=== PATIENT | female | born 1990 | race Caucasian/White ===

== ENCOUNTER 2018-04-18 18:04 | Inpatient (IN) | payer OTHER ==
--- NOTE | 2018-04-18 20:21 | HP ---
General Information - Reason for Visit 28yo G1 at 38+5 wks presents with SROM, large amt of clear fluid at about 1730 this evening. Started having ctx after that. Currently about every 4-5 min, mild to moderate in strength. Pt transferred to [facility] from a [facility] practice about a week ago, but we still do not have any records. Per pt, has been uncomplicated other than some recent borderline HTN and lower extremity edema. They started doing weekly NSTs a few weeks ago. She also reports she had a growth sono about 3 wks ago that showed the baby was around 6lb. BP normal in our office, but urine protein returned 360mg. - General Information Maternal Age: 28 Grav: 1 Para: 0 SAB: 0 IEA: 0 Estimated Due Date: 04/27/18 Determined By: per pt Gestational Age in Weeks/Days: 38+5 wks Maternal Blood Type and Rh: A Positive - Results this HBsAg Result: Negative HIV Result: Negative GBS Culture Result: Negative Past Medical History Past Medical History Comment: None Pertinent Past Surgical History: None - Antepartal Records Antepartal Records: Not Available Review of Systems Constitutional: Comfortable CV Complaint: No Respiratory: Shortness of Breath: No Gastrointestinal: No Nausea/Vomiting, Normal Bowel Movement Genitourinary: Leaking Fluid, No Dysuria, No Bleeding Musculoskeletal: Contractions - just started in the last few hours, mild to mod Neurological: No Headache, No Visual Changes Movement: Normal Exam Allergies/Adverse Reactions: Allergies No Known Allergies Allergy (Verified 04/18/18 20:22) 130-140s/80-90s Lab Values - Entire Visit: Laboratory Tests 04/18/18 18:31 Vag Amniotic Fld Detect Positive - Exam Breast: Breast Exam Deferred Extremities: Edema - 1+ Heart: Normal Rhythm/Heart Sounds HEENT: No Significant Findings Lungs: Clear Bilaterally Rectal: Rectal Exam Deferred - Abdominal Exam Abdomen Exam: Non-Tender, Fundal Height Consistent with Dates - limited by obesity - Ultrasound/Biophysical Profile Ultrasound Status: Not Done Targeted Exam Findings Estimated Weight: 7lb 4oz Cervical Exam: 2cm Effacement: 80% Station: -2 Presenting Part: Vertex Membrane Status: SROM Amniotic Fluid Evaluation: Gross Rupture Bleeding/Discharge: None EFM Findings - External Monitor Findings Baseline Heart Rate: 140 External Monitor Findings: Accelerations Present, No Pattern of Variable or Late Decelerations Contractions: Irregular, Mild, Moderate Assessment/Plan - Assessment 38+5 wks with gross SROM, reassuring status, appears to be getting into early labor. Recent HTN and elevated 24-hr urine protein, so will treat as mild pre- eclamptic at this point. - Obstetrical Risk Factors Obstetrical Risk Factors: PreEclampsia - Plan Plan: Admit - Anticipate Vaginal Delivery Plan Comment: Plan to place IV, get routine HTN labs. Will observe and start pitocin if ctx do not increase/persist. Consider Magnesium sulfate if severely elevated BP or abnormal labs. Expect . - Date/Time of Admission Date of Admission: 04/18/18 Time of Admission: 19:30
[2018-04-18 20:45] LABS: ABS Basophils 0 10^3/ul (0-0.2); ABS Eosinophils 0.1 10^3/ul (0-0.6); ABS Lymphocytes 2.7 10^3/ul (1.0-4.8); ABS Neutrophils 9.8 10^3/ul (1.5-7.7); ABS Nucleated RBC 0 10^3/ul; Eosinophil % 0.6 %; Hematocrit 37 % (35-47); Hemoglobin 12.1 g/dl (12.0-16.0); Mean Corpuscular HGB Conc 33 g/dl (31-36); Mean Corpuscular Hemoglobin 26 pg (27-31); Mean Corpuscular Volume 79 fL (80-97); Mean Platelet Volume 8.5 fL (7.4-10.4); Nucleated Red Blood Cells % 0.1; Platelet Count 286 10^3/ul (150-450); Red Blood Count 4.67 10^6/ul (4.00-5.40); Red Cell Distribution Width 16 % (10.5-15); White Blood Count 13.6 10^3/ul (3.5-10.8)
[2018-04-18 20:58] LABS: EGFR Non-African American 135.4 (>60); Uric Acid 3.5 mg/dL (2.3-6.6)
[2018-04-19] MEDS ORDERED: OBEPIDURAL* 250 ML EPIDURAL ONE (04:43)
[2018-04-19] MEDS ORDERED: Sodium Citrate/Citric Acid* 15 ML UDC PO PRN (05:05)
[2018-04-19] MEDS ORDERED: Famotidine TAB* 20 MG PO PRN (05:05)
[2018-04-19] MEDS ORDERED: Phenylephrine IV* 40 MCG/ML 10 ML SYRINGE IV PUSH PRN (05:05)
[2018-04-19] MEDS ORDERED: EPHEDrine (Pressors)* 50 MG/ML VIAL IV PUSH PRN (05:05)
[2018-04-19] MEDS ORDERED: OBEPIDURAL* 250 ML EPIDURAL SCH (06:00)
[2018-04-19] MEDS ORDERED: Glycerin ADULT SUPP PR PRN (11:33)
[2018-04-19] MEDS ORDERED: Dibucaine 1% 28.35 GM TUBE PR PRN (11:33)
[2018-04-19] MEDS ORDERED: Acetaminophen TAB* 325 MG PO PRN (11:33)
[2018-04-19] MEDS ORDERED: Witch Hazel PAD* JAR TOPICAL PRN (11:33)
[2018-04-19] MEDS ORDERED: Ibuprofen TAB* 600 MG PO PRN (11:33)
[2018-04-19] MEDS ORDERED: Oxytocin in LR* 20 UNITS/1,000 ML BAG IVPB SCH ×2 (12:00)
[2018-04-19] MEDS ORDERED: Simethicone TAB* 80 MG TAB.CHEW PO SCH (12:30)
--- NOTE | 2018-04-19 13:11 | PROCNOTE ---
[facility] OB: Delivery Note - Delivery A Date of : 04/19/18 Time of : 11:07 [place] Sex: Female Weight at : 6 lb 1 oz Score 1 Minute: 8 Score 5 Minutes: 9 Gestational Age in Weeks and Days at Delivery: 38 Weeks and 6 Days Delivery Method: Spontaneous Vaginal Labor: Spontaneous Amniotic Fluid: Clear Estimated Blood Loss: 200 Anesthesia/Analgesia: CEI for Labor Delivered By: Sandra Pardo - Perineyuni Perineal Injury: 1st Degree Perineal Repair: By Delivering Practioner - Events Delivery Events of Note: Pitocin During Labor - Additional Delivery Notes Additional Delivery Notes: Pt arrived with ROM last evening. She only progressed from 2 to 3cm after 5hrs and therefore was started on pitocin. She then received an epidural and pitocin was not restarted due to FHT concerns. At 9am she was found to be fully dilated and pushed x2hrs to deliver the infant in NINA position, nuchal cord reduced x1 followed quickly by the shoulders and the rest of the body. The baby was placed on mom's abdomen. After >1min the cord was clamped x2 and cut by dad. A small 1st degree lac was repaired with 3-0 vicryl rapide with 2 [id number] sutures. The placenta delivered with gentle cord traction and fundal massage and appeared intact. Fundus was firm with good hemostasis. Mom and baby stable.
[2018-04-19] MEDS: Docusate CAP* 100 MG PO SCH ×2 (15:52→21:10)
[2018-04-19] MEDS: Docusate LIQ* 100 MG/10 ML UDC PO SCH (21:23)
[2018-04-20 07:28] LABS: ABS Basophils 0.1 10^3/ul (0-0.2); ABS Eosinophils 0.2 10^3/ul (0-0.6); ABS Lymphocytes 4.1 10^3/ul (1.0-4.8); ABS Monocytes 1.1 10^3/ul (0-0.8); ABS Neutrophils 12.8 10^3/ul (1.5-7.7); ABS Nucleated RBC 0 10^3/ul; Hematocrit 32 % (35-47); Hemoglobin 10.4 g/dl (12.0-16.0); Lymphocyte % 22.5 %; Mean Corpuscular HGB Conc 33 g/dl (31-36); Mean Corpuscular Hemoglobin 26 pg (27-31); Mean Corpuscular Volume 80 fL (80-97); Mean Platelet Volume 7.9 fL (7.4-10.4); Nucleated Red Blood Cells % 0.1; Platelet Count 221 10^3/ul (150-450); Red Blood Count 3.99 10^6/ul (4.00-5.40); Red Cell Distribution Width 17 % (10.5-15); White Blood Count 18.3 10^3/ul (3.5-10.8)
[2018-04-20] MEDS ORDERED: Ferrous Gluconate TAB* 324 MG TAB PO SCH (09:00)
[2018-04-20] MEDS ORDERED: Measles, Mumps,Rubella VACC* 0.5 ML/VIAL SUBCUT ONE (10:29)
[2018-04-20] MEDS: Docusate LIQ* 100 MG/10 ML UDC PO SCH ×3 (10:46→21:49)
[2018-04-21 05:36] VITALS: BP 109/62
[2018-04-21] MEDS: Docusate LIQ* 100 MG/10 ML UDC PO SCH (08:35)
== END 2018-04-21 14:14 | disposition home or self-care (01) | DRG 560 ==
LOC: MCHOBOUT 18:04 → MCHOB 19:10
PROVIDERS: ADMIT Obstetrics & Gynecology; ATTEND Obstetrics & Gynecology
PROC: 4A1HXCZ Monitoring of Products of Conception, Cardiac Rate, External Approach (ICD-10-PCS; principal; 2018-04-18)
PROC: 0HQ9XZZ Repair Perineum Skin, External Approach (ICD-10-PCS; 2018-04-19)
PROC: 10E0XZZ Delivery of Products of Conception, External Approach (ICD-10-PCS; 2018-04-19)
DX: O14.04 Mild to moderate pre-eclampsia, complicating childbirth (principal); Z37.0 Single live birth; O69.81X0 Labor and delivery complicated by cord around neck, without compression, not applicable or unspecified; O70.0 First degree perineal laceration during delivery; O76 Abnormality in fetal heart rate and rhythm complicating labor and delivery; O99.214 Obesity complicating childbirth; Z3A.38 38 weeks gestation of pregnancy
CPT/HCPCS: 36415; 80053; 84112; 84550; 85025; 86850; 86900; 86901; A9270-GY

== ENCOUNTER 2021-05-17 18:35 | Inpatient (IN) ==
[2021-05-17] MEDS ORDERED: Dinoprostone 10 MG VAG.SUPP VAGINAL ONE (20:13)
[2021-05-17] MEDS ORDERED: Lactated Ringers 1000 ml BAG 1,000 ML IV ONE (20:13)
[2021-05-17] MEDS ORDERED: Buffered Lidocaine 1% SYRIN 1 ml INTRADERM ONE (20:13)
[2021-05-17] MEDS ORDERED: Lactated Ringers 1000 ml BAG 1,000 ML IV SCH (21:00)
[2021-05-17 21:57] LABS: Urine Benzodiazepine Screen None Detected (None Detect); Urine Cannabinoids Screen None Detected (None Detect); Urine Opiates Screen None Detected (None Detect)
[2021-05-18] MEDS ORDERED: Nalbuphine 10 MG/ML 1 ML VIAL IV PRN (00:14)
[2021-05-18] MEDS ORDERED: Promethazine INJ(RESTRICTED) 25 MG/ML 1 ml VIAL IV PRN (00:15)
[2021-05-18] MEDS ORDERED: Oxytocin in LR 20 UNITS/1,000 ML BAG IVPB SCH ×2 (10:00→15:00)
[2021-05-18 10:26] LABS: ABS Basophils 0.1 10^3/ul (0-0.2); ABS Eosinophils 0.1 10^3/ul (0-0.6); ABS Lymphocytes 2.9 10^3/ul (1.0-4.8); ABS Monocytes 0.6 10^3/ul (0-0.8); ABS Neutrophils 7.1 10^3/ul (1.5-7.7); Eosinophil % 0.5 %; Hematocrit 36 % (35-47); Hemoglobin 11.4 g/dL (12.0-16.0); Lymphocyte % 26.9 %; Mean Corpuscular HGB Conc 32 g/dL (31-36); Mean Corpuscular Hemoglobin 23 pg (27-31); Mean Corpuscular Volume 72 fL (80-97); Mean Platelet Volume 9.1 fL (7.4-10.4); Nucleated Red Blood Cells % 0.1; Platelet Count 287 10^3/uL (150-450); Red Blood Count 4.99 10^6 /uL (3.70-4.87); Red Cell Distribution Width 16 % (10-15); White Blood Count 10.8 10^3/uL (3.5-10.8)
[2021-05-18 10:36] LABS: Albumin 3.3 g/dL (3.2-5.2); Albumin/Globulin Ratio 1.2 (1-3); Calcium 8.5 mg/dL (8.6-10.3); Globulin 2.8 g/dL (2-4); Total Bilirubin 0.9 mg/dL (0.2-1.0); Total Protein 6.1 g/dL (6.4-8.9); eGFR CKD-EPI 121.8 (>60)
[2021-05-18] MEDS ORDERED: OBEPIDURAL 250 ML EPIDURAL ONE (12:29)
[2021-05-18] MEDS ORDERED: Phenylephrine 40 mcg/mL 10mL (400mcg) SYRINGE IV PUSH PRN ×2 (13:40)
[2021-05-18] MEDS ORDERED: Lactated Ringers 1000 ml BAG 500 ML IV PRN ×4 (13:40→13:56)
[2021-05-18] MEDS ORDERED: Lactated Ringers 1000 ml BAG 1,000 ML IV ONE (13:40)
[2021-05-18] MEDS ORDERED: Sodium Citrate/Citric Acid LIQ 15 ML UDC PO PRN (13:40)
[2021-05-18] MEDS ORDERED: OBEPIDURAL 250 ML EPIDURAL SCH (14:00)
[2021-05-18] MEDS ORDERED: Lactated Ringers 1000 ml BAG 1,000 ML IV SCH ×3 (14:00→15:00)
[2021-05-18] MEDS ORDERED: Witch Hazel PAD JAR TOPICAL PRN (14:22)
[2021-05-18] MEDS ORDERED: Glycerin ADULT 2.4 gm SUPP PR PRN (14:22)
[2021-05-18] MEDS ORDERED: Dibucaine 1% OINT 28.35 GM TUBE PR PRN (14:22)
[2021-05-18 15:02] LABS: Urine Appearance Clear; Urine Bilirubin Negative (Negative); Urine Blood 1+ (Negative); Urine Color Yellow; Urine Glucose Negative (Negative); Urine Ketones Negative (Negative); Urine Nitrite Negative (Negative); Urine Protein 2+(100 mg/dL) (Negative); Urine Specific Gravity 1.016 (1.002-1.030); Urine Urobilinogen Negative (Negative)
[2021-05-18 15:12] LABS: Urine Amorphous Crystals Present (Absent); Urine Bacteria 1+ (Absent); Urine Red Blood Cell 3+(>10/hpf) (Absent); Urine Squamous Epithelial Cell Present (Absent); Urine White Blood Cell Trace(0-5/hpf) (Absent)
[2021-05-19 07:15] LABS: ABS Basophils 0.1 10^3/ul (0-0.2); ABS Eosinophils 0.1 10^3/ul (0-0.6); ABS Lymphocytes 4.2 10^3/ul (1.0-4.8); ABS Monocytes 0.9 10^3/ul (0-0.8); Eosinophil % 0.9 %; Hematocrit 32 % (35-47); Hemoglobin 10.3 g/dL (12.0-16.0); Lymphocyte % 34.5 %; Mean Corpuscular HGB Conc 32 g/dL (31-36); Mean Corpuscular Hemoglobin 23 pg (27-31); Mean Corpuscular Volume 72 fL (80-97); Mean Platelet Volume 8.7 fL (7.4-10.4); Platelet Count 264 10^3/uL (150-450); Red Blood Count 4.47 10^6 /uL (3.70-4.87); Red Cell Distribution Width 16 % (10-15); White Blood Count 12.3 10^3/uL (3.5-10.8)
[2021-05-19] MEDS: Docusate LIQ 100 MG/10 ML UDC PO SCH (19:17)
[2021-05-20] MEDS: Docusate LIQ 100 MG/10 ML UDC PO SCH ×2 (04:10→09:42)
[2021-05-20 09:48] VITALS: BP 120/68
== END 2021-05-20 14:05 | disposition home or self-care (01) | DRG 560 ==
LOC: MCHOBOUT 18:35 → MCHOB 19:55
PROVIDERS: ADMIT Obstetrics & Gynecology; ATTEND Obstetrics & Gynecology